=== PATIENT | female | born 1940 | race Caucasian/White ===

== ENCOUNTER 2023-01-22 08:31 | Emergency (ER) | payer MEDICARE, SELFPAY ==
[2023-01-22 08:45] VITALS: BP 121/54; PULSE 81; RESP 16; TEMP 37.4; O2SAT 98
--- NOTE | 2023-01-22 09:19 | ED.URI ---
HPI - URI/Sore Throat General Chief Complaint: Upper Respiratory Infection Stated Complaint: Chest Congestion Time Seen by Provider: 01/22/23 09:12 Source: patient, RN notes reviewed and old records reviewed Mode of arrival: ambulatory Limitations: no limitations History of Present Illness HPI Narrative: [id number] female who presents to [facility] with complaints of chest and nasal congestion with productive cough and headache with some chills and low-grade temps. Patient reports that she has been taking some Mucinex DM and also took Flonase allergy medication for her symptoms. Patient denies any shortness of breath, denies any body aches , denies ear pain or any sore throat. Patient reports that she has been COVID vaccinated and also has had flu shot this season.Patient resides at [facility], reports no known ill contacts. MD elicited complaint: cough and sore throat Onset (ago): day(s) (Day 3 of symptoms) Treatments prior to arrival: other (Mucinex and Flonase allergy pill) Related Data Home Medications Medication Instructions Recorded Confirmed trazodone 100 mg tablet 100 mg PO DAILY 01/22/23 01/22/23 Allergies Allergy/AdvReac Type Severity Reaction Status Date / Time sulfamethoxazole Allergy Mild Rash Verified 01/22/23 09:15 [From Bactrim] trimethoprim [From Bactrim] Allergy Mild Rash Verified 01/22/23 09:15 Review of Systems Review of Systems: CONSTITUTIONAL report malaise, chills, sweats, or fever. EYES: Denies visual changes, redness, or discharge. ENT: Reports rhinorrhea, congestion, sinus pain, no otalgia ,no sore throat. CARDIOVASCULAR: Denies chest pain, palpitations, or edema. RESPIRATORY: Reports productive/dry cough.? Denies acute dyspnea. GASTROINTESTINAL: Denies abdominal pain, nausea, vomiting, diarrhea SKIN: Denies rash or itching. MUSCULOSKELETAL: Denies myalgia. NEUROLOGIC: Positive headache. All systems reviewed & are unremarkable except as noted in HPI and below PMFSH Past Medical History Medical History (Updated 01/23/23 @ 22:00 by Dacia Perez NP) Insomnia Surgical History Surgical History (Updated 01/23/23 @ 21:56 by Dacia Perez NP) H/O: hysterectomy History of bilateral hip replacements Social History Social History (Updated 01/22/23 @ 09:29 by Dacia Perez NP) Smoking status: Never smoker Substance use type: does not use [place] Occupation/Education: retired Gender identity (if verbalized by the patient): Female Comments At time of signature, agree with nursing past medical, surgical, social and family history. There is no relevant family history pertinent to the presenting complaint Exam Narrative: GENERAL: Well-appearing, well-nourished, and in no acute distress. HEAD: Normocephalic EYES: PERRLA, conjunctivae clear ENT: Nares clear, turbinates edematous and erythematous, clear discharge. Mucous membranes moist. TM pearly montes with dull light reflex bilaterally; no tragal tenderness. Oropharynx erythematous without lesions. Tonsils not enlarged and without exudate, no drooling, no hoarseness, no trismus, uvula midline. Postnasal congestion and drainage NECK: Supple. No lymphadenopathy CHEST: Clear to auscultation, breath sounds equal. No wheezing, rhonchi, rales, or stridor. No respiratory distress, speaks in full sentences. Productive/dry cough SaO2 98% on room air HEART: Regular rate and rhythm. No murmur heard. SKIN: Warm, dry, no rash. NEURO: Alert and oriented x3. PSYCH: Normal mood and affect Course Course Emergency Course: Patient is aware of diagnosis, understands and agrees to treatment plan.? Anticipatory guidance given.? Patient agrees to follow-up as directed and is aware of reasons to seek care at the emergency department. Portions of this record may have been created with voice recognition software Level of Care: Express Care
== END 2023-01-22 09:55 | disposition home or self-care (01) ==
PROVIDERS: Emergency Provider Registered Nurse; PCP Nurse Practitioner Family
DX: J06.9 Acute upper respiratory infection, unspecified (principal); Z20.822 Contact with and (suspected) exposure to COVID-19
CPT/HCPCS: 87426; 99213; C9803; G0463